=== PATIENT | female | born 1960 | race African-American/Black ===

== ENCOUNTER 2017-11-29 12:20 | Inpatient (IN) | payer BC ==
[2017-11-29 12:52] LABS: POC GLUCOSE 130 mg/dL (70-99)
[2017-11-29 13:05] LABS: ADD MAN DIFF? NO
[2017-11-29 13:17] LABS: INR 3.4 (0.8-1.1); PARTIAL THROMBOPLASTIN TIME 41 SEC (24-38); PROTHROMBIN TIME PATIENT 33.7 SEC (11.7-14.0)
[2017-11-29 13:18] LABS: ANION GAP 14 (6-14); BLOOD UREA NITROGEN 27 mg/dL (7-20); CARBON DIOXIDE 25 mmol/L (21-32); CHLORIDE 103 mmol/L (98-107); CREATININE 1.4 mg/dL (0.6-1.0); GFR 46.6; GLUCOSE 135 mg/dL (70-99); SODIUM 142 mmol/L (136-145)
[2017-11-29 13:28] LABS: TROPONINI < 0.017 ng/mL (0.000-0.055)
[2017-11-29 13:28] LABS: BASO % 1 % (0-3); EOS # 0.1 x10^3/uL (0.0-0.7); EOS % 1 % (0-3); HEMATOCRIT 31.8 % (36.0-47.0); HEMOGLOBIN 10.6 g/dL (12.0-15.5); LYMPH # 1.6 x10^3/uL (1.0-4.8); LYMPH % 27 % (24-48); MEAN CORPUSCULAR HEMOGLOBIN 29 pg (25-35); MEAN CORPUSCULAR HGB CONC 34 g/dL (31-37); MEAN CORPUSCULAR VOLUME 86 fL (79-100); MONO # 0.7 x10^3/uL (0.0-1.1); MONO % 12 % (0-9); NEUT # 3.4 x10^3uL (1.8-7.7); NEUT % 59 % (31-73); PLATELET COUNT 333 x10^3/uL (140-400); RED CELL DISTRIBUTION WIDTH 14.4 % (11.5-14.5); WHITE BLOOD COUNT 5.7 x10^3/uL (4.0-11.0)
[2017-11-29] MEDS: IV NORMAL SALINE 500ML BAG 500 ML IV (15:17)
[2017-11-29] MEDS ORDERED: MORPHINE SULFATE 4 MG/ML DISP.SYRIN. IV (15:45)
[2017-11-29] MEDS ORDERED: ONDANSETRON PF 4 MG/2 ML VIAL. IV (15:45)
[2017-11-29] MEDS ORDERED: ACETAMINOPHEN 325 MG TABLET. PO (15:45)
[2017-11-29] MEDS ORDERED: MORPHINE SULFATE 2 MG/ML DISP.SYRIN. IV (15:45)
[2017-11-30 04:01] LABS: ADD MAN DIFF? NO
[2017-11-30 04:10] LABS: BASO # 0.1 x10^3/uL (0.0-0.2); BASO % 1 % (0-3); EOS # 0.1 x10^3/uL (0.0-0.7); EOS % 1 % (0-3); HEMATOCRIT 30.1 % (36.0-47.0); HEMOGLOBIN 10.3 g/dL (12.0-15.5); LYMPH # 1.8 x10^3/uL (1.0-4.8); LYMPH % 32 % (24-48); MEAN CORPUSCULAR HEMOGLOBIN 29 pg (25-35); MEAN CORPUSCULAR HGB CONC 34 g/dL (31-37); MEAN CORPUSCULAR VOLUME 86 fL (79-100); MONO # 0.6 x10^3/uL (0.0-1.1); MONO % 11 % (0-9); NEUT # 3.1 x10^3uL (1.8-7.7); NEUT % 55 % (31-73); PLATELET COUNT 290 x10^3/uL (140-400); RED BLOOD COUNT 3.53 x10^6/uL (3.50-5.40); RED CELL DISTRIBUTION WIDTH 14.5 % (11.5-14.5); WHITE BLOOD COUNT 5.6 x10^3/uL (4.0-11.0)
[2017-11-30 04:28] LABS: ANION GAP 11 (6-14); BLOOD UREA NITROGEN 25 mg/dL (7-20); CALCIUM 9.7 mg/dL (8.5-10.1); CARBON DIOXIDE 25 mmol/L (21-32); CHLORIDE 107 mmol/L (98-107); CREATININE 1.2 mg/dL (0.6-1.0); GFR 55.6; GLUCOSE 87 mg/dL (70-99); POTASSIUM 4.2 mmol/L (3.5-5.1); SODIUM 143 mmol/L (136-145)
[2017-11-30 04:55] LABS: INR 2.1 (0.8-1.1); PROTHROMBIN TIME PATIENT 22.5 SEC (11.7-14.0)
[2017-11-30] MEDS: ASPIRIN CHEWABLE 81 MG TABLET. PO (08:46)
[2017-11-30] MEDS: RIVAROXABAN 15 MG TABLET. PO ×2 (08:46→20:37)
[2017-11-30] MEDS: LISINOPRIL 20 MG TABLET PO (09:00)
[2017-11-30] MEDS: hydroCHLOROthiazide 25 MG TABLET PO (09:00)
[2017-11-30] MEDS: amLODIPine BESYLATE 5 MG TABLET PO (09:00)
[2017-11-30 11:14] LABS: THYROID STIM HORMONE (TSH) 0.261 uIU/mL (0.358-3.74)
[2017-11-30 11:16] LABS: VITAMIN-B12 590 pg/mL (247-911)
[2017-11-30 12:06] LABS: BARBITURATES NEG (NEG); BENZODIAZEPINES NEG (NEG); CANNABINOIDS NEG (NEG); COCAINE NEG (NEG); METHADONE NEG (NEG); OPIATES NEG (NEG); PHENCYCLIDINE NEG (NEG)
[2017-11-30 12:07] LABS: AMPHETAMINE/METHAMPHETAMINE NEG (NEG); ETHANOL, URINE NEG (NEG)
[2017-11-30 17:37] LABS: FREE T4 1.29 ng/dL (0.76-1.46)
[2017-11-30] MEDS: ATORVASTATIN CALCIUM 40 MG TABLET. PO (20:37)
[2017-12-01 02:09] LABS: CHOLESTEROL 127 mg/dL (0-200); HDLC 56 mg/dL (40-60); LDLC 58 mg/dL (0-100); NON-HDL CHOLESTEROL 71 mg/dL (0-129); TRIGLYCERIDES 66 mg/dL (0-150); VLDLC 13 mg/dL (0-40)
[2017-12-01 02:13] LABS: CHOLESTEROL/HDL RATIO 2.3
[2017-12-01] MEDS: ASPIRIN CHEWABLE 81 MG TABLET. PO (08:33)
[2017-12-01] MEDS: RIVAROXABAN 15 MG TABLET. PO ×2 (08:33→20:20)
[2017-12-01] MEDS: ERGOCALCIFEROL (VITAMIN D2) 50,000 UNIT CAPSULE. PO ×2 (08:35→12:00)
[2017-12-01] MEDS ORDERED: hydrALAZINE 20 MG/ML VIAL. IVP (11:30)
[2017-12-01] MEDS: ATORVASTATIN CALCIUM 40 MG TABLET. PO (20:20)
[2017-12-02] MEDS: RIVAROXABAN 15 MG TABLET. PO ×2 (08:29→20:14)
[2017-12-02] MEDS: ASPIRIN CHEWABLE 81 MG TABLET. PO (08:29)
[2017-12-02] MEDS: LISINOPRIL 10 MG TABLET PO (09:00)
[2017-12-02] MEDS: IV NORMAL SALINE 500ML BAG 500 ML IV (12:02)
[2017-12-02 14:37] LABS: HEMATOCRIT 30.8 % (36.0-47.0); HEMOGLOBIN 10.5 g/dL (12.0-15.5); MEAN CORPUSCULAR HEMOGLOBIN 29 pg (25-35); MEAN CORPUSCULAR HGB CONC 34 g/dL (31-37); MEAN CORPUSCULAR VOLUME 86 fL (79-100); PLATELET COUNT 305 x10^3/uL (140-400); RED BLOOD COUNT 3.59 x10^6/uL (3.50-5.40); RED CELL DISTRIBUTION WIDTH 14.3 % (11.5-14.5); WHITE BLOOD COUNT 5.6 x10^3/uL (4.0-11.0)
[2017-12-02 14:48] LABS: ANION GAP 11 (6-14); BLOOD UREA NITROGEN 28 mg/dL (7-20); CALCIUM 8.5 mg/dL (8.5-10.1); CARBON DIOXIDE 25 mmol/L (21-32); CHLORIDE 104 mmol/L (98-107); CREATININE 1.2 mg/dL (0.6-1.0); GFR 55.6; GLUCOSE 117 mg/dL (70-99); POTASSIUM 3.7 mmol/L (3.5-5.1); SODIUM 140 mmol/L (136-145)
[2017-12-02] MEDS: ATORVASTATIN CALCIUM 40 MG TABLET. PO (20:14)
[2017-12-03] MEDS: ASPIRIN CHEWABLE 81 MG TABLET. PO (08:19)
[2017-12-03] MEDS ORDERED: ACETAMINOPHEN 500 MG TABLET PO (08:45)
[2017-12-03] MEDS: LISINOPRIL 10 MG TABLET PO (09:00)
[2017-12-03] MEDS: ANTI-COAG MONITOR BY PHARMACY. MC (14:02)
[2017-12-03] MEDS: RIVAROXABAN 10 MG TABLET. PO (18:32)
[2017-12-03] MEDS: ATORVASTATIN CALCIUM 40 MG TABLET. PO (21:24)
[2017-12-04] MEDS: LISINOPRIL 10 MG TABLET PO (08:24)
[2017-12-04] MEDS: ASPIRIN CHEWABLE 81 MG TABLET. PO (08:24)
[2017-12-04] MEDS: RIVAROXABAN 10 MG TABLET. PO (17:27)
[2017-12-04] MEDS: ATORVASTATIN CALCIUM 40 MG TABLET. PO (20:45)
[2017-12-05] MEDS: ASPIRIN CHEWABLE 81 MG TABLET. PO (08:26)
[2017-12-05] MEDS: LISINOPRIL 10 MG TABLET PO (08:26)
[2017-12-05] MEDS: CITALOPRAM 10 MG TABLET. PO (12:48)
[2017-12-05] MEDS: RIVAROXABAN 10 MG TABLET. PO (17:07)
[2017-12-05] MEDS: ATORVASTATIN CALCIUM 40 MG TABLET. PO (20:51)
[2017-12-06] MEDS: CITALOPRAM 10 MG TABLET. PO (08:12)
[2017-12-06] MEDS: LISINOPRIL 10 MG TABLET PO (08:12)
[2017-12-06] MEDS: ASPIRIN CHEWABLE 81 MG TABLET. PO (08:13)
[2017-12-06] MEDS: RIVAROXABAN 10 MG TABLET. PO (16:26)
== END 2017-12-06 16:45 | disposition home or self-care (01) | DRG 65 ==
LOC: ER 12:20 → ED HOLD 15:45 → 2 NORTH 18:28
PROVIDERS: Family Medicine
DX: I63.40 Cerebral infarction due to embolism of unspecified cerebral artery (principal); Q21.1 Atrial septal defect; E11.9 Type 2 diabetes mellitus without complications; I10 Essential (primary) hypertension; E78.5 Hyperlipidemia, unspecified; F17.210 Nicotine dependence, cigarettes, uncomplicated; H54.7 Unspecified visual loss; H53.2 Diplopia; M19.90 Unspecified osteoarthritis, unspecified site; F32.9 Major depressive disorder, single episode, unspecified; Z98.51 Tubal ligation status; Z79.82 Long term (current) use of aspirin; Z79.01 Long term (current) use of anticoagulants; Z79.899 Other long term (current) drug therapy
CPT/HCPCS: 36415; 70450; 70544; 70547; 70551; 80048; 80061; 80307; 82306; 82607; 82962; 84439; 84443; 84481; 84484; 85025; 85027; 85610; 85730; 93005; 93308; 93880; 96360; 97110-GP; 97116-GP; 97162-GP; 97165-GO; 99285; 99285-25; C8929; J7040

== ENCOUNTER 2020-01-29 12:00 | Emergency (ER) | payer BC ==
[~2020-01-29] VITALS: Ht 170.2 cm; Wt 68.1 kg
[~2020-01-29 12:00] MED LIST: AMLO5TAB10 PO; ASPI-630 PO; ATOR40TA59 PO; CITA10TA8 PO; ERGO500027 PO; HYDR-2145 PO; LISI-130 PO; LISI10TA2 PO; RIVA10TA PO; RIVA15TA PO
[2020-01-29] MEDS ORDERED: IV NORMAL SALINE 1000ML BAG 1,000 ML IV ONE (13:15)
[2020-01-29 13:22] LABS: BASO % 1 % (0-3); EOS % 1 % (0-3); HEMATOCRIT 36.4 % (36.0-47.0); HEMOGLOBIN 12.2 g/dL (12.0-15.5); LYMPH # 1.9 x10^3/uL (1.0-4.8); LYMPH % 41 % (24-48); MEAN CORPUSCULAR HEMOGLOBIN 30 pg (25-35); MEAN CORPUSCULAR HGB CONC 33 g/dL (31-37); MEAN CORPUSCULAR VOLUME 90 fL (79-100); MONO # 0.4 x10^3/uL (0.0-1.1); MONO % 8 % (0-9); NEUT # 2.2 x10^3/uL (1.8-7.7); NEUT % 49 % (31-73); PLATELET COUNT 277 x10^3/uL (140-400); RED BLOOD COUNT 4.03 x10^6/uL (3.50-5.40); RED CELL DISTRIBUTION WIDTH 14.2 % (11.5-14.5); WHITE BLOOD COUNT 4.5 x10^3/uL (4.0-11.0)
[2020-01-29 13:31] LABS: PROTHROMBIN TIME PATIENT 17.8 SEC (11.7-14.0)
[2020-01-29 13:32] LABS: CALCIUM 9.7 mg/dL (8.5-10.1); CREATININE 1.7 mg/dL (0.6-1.0); POTASSIUM 3.2 mmol/L (3.5-5.1)
[2020-01-29 13:42] LABS: ALBUMIN 3.7 g/dL (3.4-5.0); ALBUMIN/GLOBULIN RATIO 0.9 (1.0-1.7); TOTAL BILIRUBIN 0.4 mg/dL (0.2-1.0); TOTAL PROTEIN 7.6 g/dL (6.4-8.2)
[2020-01-29 13:49] LABS: CREATINE KINASE 52 U/L (26-192)
--- NOTE | 2020-01-29 13:54 | RAD ---
CT of the head Axial CT images of the head were obtained without IV contrast. Exposure: One or more of the following individualized dose reduction techniques were utilized for this examination: 1. Automated exposure control 2. Adjustment of the mA and/or kV according to patient size 3. Use of iterative reconstruction technique Comparison: None. Indication: Syncope, near dizziness Findings: No mass, mass effect or hemorrhage is seen. The ventricles and cortical sulci are mildly enlarged. There are diffuse periventricular white matter hypodensities. The basilar cisterns are unremarkable. No midline shift is noted. There is no intra or extra axial fluid collection. There is diffuse calcification of the bilateral internal carotid arteries and vertebral arteries. No bony or soft tissue abnormality is seen. The visualized paranasal sinuses are clear. Impression: 1. No acute mass, mass effect or hemorrhage. 2. Periventricular white matter ischemic change. Age appropriate brain atrophy. 3. Diffuse mild atherosclerotic disease of the intracranial vessels. Electronically signed by: Juan Salcido MD (01/29/2020 1:51 PM) [id number]
[2020-01-29 13:57] LABS: BILIRUBIN,URINE SMALL (NEG); CLARITY,URINE CLOUDY; COLOR,URINE YELLOW; NITRITE,URINE NEGATIVE (NEG); PH,URINE 5.5 (<5.0-8.0); PROTEIN,URINE NEGATIVE (NEG-TRACE); UROBILINOGEN,URINE 0.2 mg/dL (0.2 mg/dL)
--- NOTE | 2020-01-29 14:03 | PHYS DOC ---
Past Medical History Past Medical History: CVA, Diabetes-Type II, High Cholesterol, Hypertension, TIA Past Surgical History: Smoking Status: Current Every Day Smoker Additional Information: 0.5 PPD Alcohol Use: None Drug Use: None General Adult EDM: Chief Complaint: DIZZY/LIGHT HEADED HPI: HPI: Patient is a 59 year old female who presents with complaints of feeling dizzy since around 11:00 this morning. States that she does not have air-conditioning in her house and it gets really hot and she has not drink enough water lately. Patient thought initially that her dizziness was related to a possible low blood sugar problem so she walked up to the convenient store and drink some soda and some chocolate milk and did not feel much change, an ambulance was called by a bystander and she was transported here to the emergency department. Patient states that since has been inside the emergency department and exposed to the cooler air, that her symptoms has resolved and she no longer has any dizziness or complaints. Patient does state however that she worries about being dehydrated because of her hot home without air conditioning. Patient states she has never had any dizzy spells before and she was very sweaty at the time that she had her dizzy spell, however she states that she had just walked as she described quite a ways to the convenient store. Patient denies any COVID-19 exposure or concerns. Patient denies any fever chills, any visual changes, any nasal congestion, any cough or shortness of breath. She denies any chest pain, swelling of her extremities, any abdominal pain, nausea, vomiting, diarrhea, constipation. Patient denies any problems urinating. Patient denies any back pain or pain in her joints. Rash, headaches, focal weaknesses, or sensory changes. Patient denies any swelling of her glands. Patient denies any recent life changes, depressions, anxieties, homicidal or suicidal ideations. Patient states that she is diabetic, however denies any recent polyuria or polydipsia. Review of Systems: Review of Systems: Constitutional: Denies fever or chills. Denies exposure to COVID-19 or COVID- 19 concerns. Eyes: Denies change in visual acuity. HENT: Denies nasal congestion or sore throat. Respiratory: Denies cough or shortness of breath. Cardiovascular: Denies chest pain or edema. GI: Denies abdominal pain, nausea, vomiting, bloody stools or diarrhea. : Denies dysuria. Musculoskeletal: Denies back pain or joint pain. Integument: Denies rash. Neurologic: Denies headache, focal weakness or sensory changes. However did complain of a dizzy spell with some sweatiness after walking some distance outside in the heat to the convenient store. Endocrine: Denies polyuria or polydipsia. Lymphatic: Denies swollen glands. Psychiatric: Denies depression or anxiety. Denies homicidal ideation, denies suicidal ideation. Heart Score: HEART Score for Chest Pain: HEART Score for Chest Pain Response (Comments) Value History Slighlty/Non-Suspicious 0 Age >45 - < 65 1 Risk Factors 1 or 2 Risk Factors 1 Troponin < Normal Limit 0 Total 2 Risk Factors: Risk Factors: DM, Current or recent (<one month) smoker, HTN, HLP, family history of CAD, obesity. Risk Scores: Score 0 - 3: 2.5% MACE over next 6 weeks - Discharge Home Score 4 - 6: 20.3% MACE over next 6 weeks - Admit for Clinical Observation Score 7 - 10: 72.7% MACE over next 6 weeks - Early Invasive Strategies Family History: Family History: Patient states both her mom and dad have high blood pressure and diabetes. Current Medications: Current Medications Medications (Trade) Dose Ordered Sig/Richy Start Time Stop Time Status Last Admin Dose Admin Sodium Chloride 1,000 ml @ 1,000 mls/hr 1X ONCE 01/29/20 13:15 01/29/20 14:14 01/29/20 13:50 1,000 MLS/HR Allergies: Allergies: Allergies Coded Allergies Type Severity Reaction Last Updated Verified No Known Drug Allergies 11/29/17 No Physical Exam: PE: Constitutional: Well developed, well nourished, no acute distress, non-toxic appearance. HENT: Normocephalic, atraumatic, bilateral external ears normal, oropharynx moist, no oral exudates, nose normal. Eyes: PERRLA, EOMI, conjunctiva normal, no discharge. Pupils 3 mm. Neck: Normal range of motion, no tenderness, supple, no stridor. Cardiovascular:Heart rate regular rhythm, no murmur, heart sounds S1-S2, no abnormalities per auscultation. Lungs & Thorax: Bilateral breath sounds clear to auscultation all lung mortensen. Abdomen: Bowel sounds normal all 4 quadrants, soft, no tenderness, no masses, no pulsatile masses. Skin: Warm, dry, no erythema, no rash. Back: No tenderness, no CVA tenderness. Extremities: No tenderness, no cyanosis, no clubbing, ROM intact, no edema. Neurologic: Alert and oriented X 3, normal motor function, normal sensory function, no focal deficits noted. Psychologic: Affect normal, judgement normal, mood normal. Current Patient Data: Labs: Laboratory Tests Test 01/29/20 12:08 01/29/20 12:10 Glucose (Fingerstick) 188 mg/dL (70-99) H White Blood Count 4.5 x10^3/uL (4.0-11.0) Red Blood Count 4.03 x10^6/uL (3.50-5.40) Hemoglobin 12.2 g/dL (12.0-15.5) Hematocrit 36.4 % (36.0-47.0) Mean Corpuscular Volume 90 fL (79-100) Mean Corpuscular Hemoglobin 30 pg (25-35) Mean Corpuscular Hemoglobin Concent 33 g/dL (31-37) Red Cell Distribution Width 14.2 % (11.5-14.5) Platelet Count 277 x10^3/uL (140-400) Neutrophils (%) (Auto) 49 % (31-73) Lymphocytes (%) (Auto) 41 % (24-48) Monocytes (%) (Auto) 8 % (0-9) Eosinophils (%) (Auto) 1 % (0-3) Basophils (%) (Auto) 1 % (0-3) Neutrophils # (Auto) 2.2 x10^3/uL (1.8-7.7) Lymphocytes # (Auto) 1.9 x10^3/uL (1.0-4.8) Monocytes # (Auto) 0.4 x10^3/uL (0.0-1.1) Eosinophils # (Auto) 0.0 x10^3/uL (0.0-0.7) Basophils # (Auto) 0.0 x10^3/uL (0.0-0.2) Prothrombin Time 17.8 SEC (11.7-14.0) H Prothrombin Time INR 1.5 (0.8-1.1) H Activated Partial Thromboplast Time 32 SEC (24-38) Sodium Level 140 mmol/L (136-145) Potassium Level 3.2 mmol/L (3.5-5.1) L Chloride Level 102 mmol/L (98-107) Carbon Dioxide Level 24 mmol/L (21-32) Anion Gap 14 (6-14) Blood Urea Nitrogen 43 mg/dL (7-20) H Creatinine 1.7 mg/dL (0.6-1.0) H Estimated GFR (Cockcroft-Gault) 37.0 BUN/Creatinine Ratio 25 (6-20) H Glucose Level 215 mg/dL (70-99) H Calcium Level 9.7 mg/dL (8.5-10.1) Total Bilirubin 0.4 mg/dL (0.2-1.0) Aspartate Amino Transferase (AST) 14 U/L (15-37) L Alanine Aminotransferase (ALT) 19 U/L (14-59) Alkaline Phosphatase 76 U/L (46-116) Creatine Kinase 52 U/L (26-192) Creatine Kinase MB (Mass) < 0.5 ng/mL (0.0-3.6) Creatine Kinase MB Relative Index % (0-4) Troponin I Quantitative < 0.017 ng/mL (0.000-0.055) Total Protein 7.6 g/dL (6.4-8.2) Albumin 3.7 g/dL (3.4-5.0) Albumin/Globulin Ratio 0.9 (1.0-1.7) L Laboratory Tests 01/29/20 12:10 Laboratory Tests 01/29/20 12:10 Vital Signs: Vital Signs Date Time Temp Pulse Resp B/P (MAP) Pulse Ox O2 Delivery O2 Flow Rate FiO2 01/29/20 12:00 98.0 91 19 113/76 (88) 100 Room Air 98.0 EKG: EKG: EKG performed at 1211 by ED nursing staff shows normal sinus rhythm without ectopy, reviewed by ED attending Dr. Thompson. No STEMI, no ACS concerns. Radiology/Procedures: Radiology/Procedures: REASON: NEAR SYNCOPE/DIZZYNESS PROCEDURE: CT HEAD WO CONTRAST CT of the head Axial CT images of the head were obtained without IV contrast. Exposure: One or more of the following individualized dose reduction techniques were utilized for this examination: 1. Automated exposure control 2. Adjustment of the mA and/or kV according to patient size 3. Use of iterative reconstruction technique Comparison: None. Indication: Syncope, near dizziness Findings: No mass, mass effect or hemorrhage is seen. The ventricles and cortical sulci are mildly enlarged. There are diffuse periventricular white matter hypodensities. The basilar cisterns are unremarkable. No midline shift is noted. There is no intra or extra axial fluid collection. There is diffuse calcification of the bilateral internal carotid arteries and vertebral arteries. No bony or soft tissue abnormality is seen. The visualized paranasal sinuses are clear. Impression: 1. No acute mass, mass effect or hemorrhage. 2. Periventricular white matter ischemic change. Age appropriate brain atrophy. 3. Diffuse mild atherosclerotic disease of the intracranial vessels. Electronically signed by: Juan Salcido MD (01/29/2020 1:51 PM) [id number] DICTATED and SIGNED BY: JUAN SALCIDO MD DATE: 01/29/20 1353 Course & Med Decision Making: Course & Med Decision Making Pertinent Labs and Imaging studies reviewed. (See chart for details) 59-year-old patient presented to the emergency department via ambulance with complaints of dizziness and sweatiness. Patient thought that her blood sugar was low and drinks some sodas and some chocolate milk and it did not resolve her symptoms so bystanders called EMS who brought her to the emergency department. Her symptoms had resolved prior to physical examination. Her physical examination was non-concerning for acute injury or acute infectious process. However related to the patient's history and age, a CAT scan was ordered and a cardiac work-up was ordered as well. Labs were negative for acute infectious p rocess, and negative for cardiac concerns. However her potassium was 3.2 and was addressed in the emergency department with p.o. potassium. Patient was given 1 L of normal saline during her emergency department stay. The CAT scan imaging was negative for intracranial disease process. Upon reexamination of the patient, patient remains complaint free, discussed discharging to home. Patient was agreeable to discharge instructions to home, however she fears that since she does not have an air conditioner that she may become hot again and sweaty and dizzy. Discussed with patient that she should drink plenty of water at home and seek places that are cooler that may have conditioned air. Patient states that she will try, patient was not given any prescriptions at home. Patient was amenable to discharge to home instructions. Also was agreeable and gave verbal understanding of return to ER concerns and precautions. Patient discharged home. Dragon Disclaimer: Dragon Disclaimer: This electronic medical record was generated, in whole or in part, using a voice recognition dictation system. Departure Departure Impression: Primary Impression: Spell of dizziness Additional Impression: Heat exhaustion Qualified Codes: T67.5XXA - Heat exhaustion, unspecified, initial encounter Disposition: HOME, SELF-CARE Condition: GOOD Referrals: FANTASMA BOCANEGRA MD (PCP) Patient Instructions: Dizziness, Heat-Related Illness Additional Instructions: Please drink plenty of water at home, seek places with condition to air, return to the emergency department for worsening complaints, or further concerns. See your doctor soon. Justicifation of Admission Dx: Justifications for Admission: Justification of Admission Dx: N/A JUVE DAVIS APRN Jan 29, 2020 14:03
[2020-01-29 14:14] LABS: BACTERIA,URINE MODERATE /HPF (0-FEW); SQUAMOUS EPITHELIAL CELL,UR MOD /LPF; WBC,URINE TNTC /HPF (0-4)
[2020-01-29] MEDS ORDERED: POTASSIUM CHLORIDE 20 MEQ TABLET.ER. PO ONE (14:30)
[2020-01-29 17:04] VITALS: BP 98/53
--- NOTE | 2020-01-30 03:06 | EKG ---
[facility] [address] [place] [address] Test Date: 2020-01-29 Test Time: 12:11:06 Pat Name: BUNNY BRUCE Department: Room: Gender: F [employer]: : [id number] Requested By: JUVE DAVIS Order Number: [id number] Reading MD: Measurements Intervals [place] Rate: 86 P: 41 [place]: 146 QRS: 33 QRSD: 82 T: 15 QT: 346 QTc: 417 Interpretive Statements SINUS RHYTHM QRS(T) CONTOUR ABNORMALITY CONSIDER INFERIOR MYOCARDIAL DAMAGE POSSIBLY ABNORMAL ECG RI6.01 No previous ECG available for comparison
== END 2020-01-29 17:17 | disposition home or self-care (01) ==
LOC: ER 12:00
DX: T67.3XXA Heat exhaustion, anhydrotic, initial encounter (principal); R42 Dizziness and giddiness; E86.0 Dehydration; E11.9 Type 2 diabetes mellitus without complications; E78.00 Pure hypercholesterolemia, unspecified; I10 Essential (primary) hypertension; F17.200 Nicotine dependence, unspecified, uncomplicated; Z86.73 Personal history of transient ischemic attack (TIA), and cerebral infarction without residual deficits; Z98.890 Other specified postprocedural states; X58.XXXA Exposure to other specified factors, initial encounter; Y93.89 Activity, other specified; Y92.89 Other specified places as the place of occurrence of the external cause; Y99.8 Other external cause status
CPT/HCPCS: 36415; 70450; 80053; 81001; 82553; 82962; 84484; 85025; 85610; 85730; 87086; 93005; 96360; 96361; 99285; J7030